=== PATIENT | male | born 1975 | race Caucasian/White ===

== ENCOUNTER 2017-02-03 03:26 | Emergency (ER) | payer OTHER ==
[~2017-02-03] VITALS: Ht 172.7 cm; Wt 85.0 kg
[2017-02-03 03:34] VITALS: Ht 172.7 cm; Wt 85.0 kg
--- NOTE | 2017-02-03 03:41 | ERA ---
ER Documentation Chief Complaint Date/Time DATE: 02/03/17 TIME: 03:40 Chief Complaint BIBA RA 881 for medical clearance c/o rt knee pain HPI The patient is a 41-year-old male, presenting to the ER for medical clearance because he is in custody. He complains of right knee pain when he accidentally hit the police car. He denies any overt injury, denies headache, neck pain, chest pain, dyspnea, abdominal pain, vomiting. He denies smoking, drinking, doing any illicit drug Past medical/surgical history: None ROS All systems reviewed and are negative except as per history of present illness. Allergies Allergies: Coded Allergies: No Known Allergy (Unverified , 02/03/17) PMhx/Soc Medical and Surgical Hx: pt denies Medical Hx, pt denies Surgical Hx History of Surgery: No Anesthesia Reaction: No Hx Neurological Disorder: No Hx Respiratory Disorders: No Hx Cardiac Disorders: No Hx Psychiatric Problems: No Hx Miscellaneous Medical Probl: No Hx Alcohol Use: Yes Hx Substance Use: No Hx Tobacco Use: No Smoking Status: Never smoker Physical Exam Vitals Vital Signs Date Time Temp Pulse Resp B/P Pulse Ox O2 Delivery O2 Flow Rate FiO2 02/03/17 03:34 98.2 77 18 130/68 96 Physical Exam Const: No acute distress. Head: Atraumatic. Eyes: Normal Conjunctiva. ENT: Normal External Ears, Nose and Mouth. Neck: Full range of motion. No meningismus. Resp: Clear to auscultation bilaterally. Cardio: Regular rate and rhythm. Abd: Soft, non distended, normal bowel sounds, non tender. Skin: No petechiae or rashes. Back: No midline or flank tenderness. Ext: Right knee with minimal edema, no erythema, no crepitus, no calf tenderness Neur: Awake and alert. No focal deficit Psych: Agitated Procedures/[place] [id number] Radiology Main Line: [phone] DIAGNOSTIC IMAGING REPORT Patient: AWA BURNS : 1975 Age: 41 Sex: M MR #: [id number] DOS: 02/03/17 0345 Ordering MD: LOIS PIÑA MD Location: E/R Room/Bed: PROCEDURE: Right knee. CLINICAL INDICATION: Pain. TECHNIQUE: Three views including AP, lateral and oblique views of the right knee were obtained. The images reviewed on a PACS workstation. COMPARISON: None. FINDINGS: There is no fracture, dislocation or bone destruction. There is no significant joint space narrowing or effusion. Bone mineralization is within normal limits. There is no radiopaque foreign body or abnormal calcification. IMPRESSION: No evidence of fracture. .Kyrie Sharif MD, Date Time Electronically viewed and signed by .Kyrie Sharif MD, on 02/03/2017 04:20 .T/ CC: LOIS PIÑA MD MEDICAL MAKING DECISION: The patient is a 41-year-old male, presenting to the ER for medical clearance, acute right knee pain of unclear etiology. The differential diagnoses considered include but are not limited to fracture, contusion, sprain, internal derangement Departure Diagnosis: Primary Impression: Knee pain, right Additional Impression: Medical clearance for incarceration Condition: Good Comments I discussed the findings with the patient. I advised the patient to follow-up with senior care physician tomorrow for evaluation and return if any concern. The patient's blood pressure was elevated (>120/80) but appears stable without evidence of hypertension emergency or urgency. The patient was counseled about the risks of hypertension and urged to pursue outpatient monitoring and therapy within a week with their primary care physician. LOIS PIÑA MD Feb 03, 2017 03:41
--- NOTE | 2017-02-03 04:20 | RADRPT ---
PROCEDURE: Right knee. CLINICAL INDICATION: Pain. TECHNIQUE: Three views including AP, lateral and oblique views of the right knee were obtained. The images reviewed on a PACS workstation. COMPARISON: None. FINDINGS: There is no fracture, dislocation or bone destruction. There is no significant joint space narrowin g or effusion. Bone mineralization is within normal limits. There is no radiopaque foreign body or abnormal calcification. IMPRESSION: No evidence of fracture. .Kyrie Sharif MD, Date Time Electronically viewed and signed by .Kyrie Sharif MD, MD on 02/03/2017 04:20 .T/
== END 2017-02-03 04:57 | disposition home or self-care (01) ==
LOC: E/R 03:26
DX: M25.561 Pain in right knee (principal); Z02.89 Encounter for other administrative examinations
CPT/HCPCS: 73562